=== PATIENT | male | born 1950 | race African-American/Black ===

== ENCOUNTER 2018-03-11 00:43 | Inpatient (IN) | payer OTHER ==
--- NOTE | 2018-03-11 00:51 | HP ---
COWS - Scale Resting Pulse: 1= [place] 81-100 Sweatin=Flushed/Facial Moisture Restless Observation: 3= Extraneous Movement Pupil Size: 1= Pupils >than Normal Bone or Joint Aches: 2= Severe Diffuse Aches Runny Nose/ Eye Tearin= None GI Upset > 30mins: 3= Vomiting/Diarrhea Tremor Observation: 4= Gross Tremor/Twitching Yawning Observation: 0= None Anxiety or Irritability: 2=Irritable/Anxious Goose Flesh Skin: 0=Smooth Skin COWS Score: 18 CIWA Score - Admission Criteria OAS Guidelines: Admission for Medically Managed Detox: Requires at least one of the followin. CIWA greater than 12 2. Seizures within the past 24 hours 3. Delirium tremens within the past 24 hours 4. Hallucinations within the past 24 hours 5. Acute intervention needed for co occurring medical disorder 6. Acute intervention needed for co occurring psychiatric disorder 7. Severe withdrawal that cannot be handled at a lower level of care (continued vomiting, continued diarrhea, abnormal vital signs) requiring intravenous medication and/or fluids 8. Admission ROS [facility] Chief Complaint: C/O WITHDRAWAL SX'S . SEEKING DETOX FROM HEROIN Allergies/Adverse Reactions: Allergies Allergy/AdvReac Type Severity Reaction Status Date / Time No Known Allergies Allergy Verified 03/11/18 00:45 History of Present Illness: 67 Y.O. MALE WITH HX/O OF HEROIN ADDICTION HERE FOR DETOX. THIS IS CLIENT FIRST ADMISSION HERE. HE PRESENTS TODAY WITH C/O WITHDRAWAL SX'S. COW 18. BROUGHT IN BY A FRIEND. HE REPORTS HIS LAST DETOX WAS SEVERAL MONTHS AGO BUT DOES NOT RECALL WHERE. PMHX- DM, HTN, BPH, NEUROPATHY TIA 1998. DENIES PSYCH TO INCLUDE SI/HI, HARSH. DENIES SEIZURE D.O. LIVES ALONE IN AN APT, RETIRED. DENIES LEGALLLLS. Exam Limitations: Physical Impairment (AMBULATES WITH CANE 2/2 TO BLE WEAKNESS AND PAIN) - Ebola screening Have you traveled outside of the country in the last 21 days: No Have you had contact with anyone from an Ebola affected area: No Have you been sick,other than usual withdrawal symptoms: No Do you have a fever: No - Review of Systems Constitutional: Chills, Loss of Appetite, Malaise (JOINTS), Night Sweats, Changes in sleep EENT: reports: No Symptoms Reported Respiratory: reports: No Symptoms reported Cardiac: reports: Edema (BILAT ANKLE SWELLING) GI: reports: Poor Appetite, Poor Fluid Intake, Vomiting : reports: Other (HESITANCY, DRIBBLING) Musculoskeletal: reports: Joint Pain Integumentary: reports: Sweating Neuro: reports: Tremors, Unsteady Gait (AMBUALTES W/ CANE) Endocrine: reports: Other (HX/O DM) Hematology: reports: No Symptoms Reported Psychiatric: reports: Depressed (FEELS) Other Systems: Reviewed and Negative Patient History - Patient Medical History Hx Anemia: No Hx Asthma: No Hx Chronic Obstructive Pulmonary Disease (COPD): No Hx Cancer: No Hx Cardiac Disorders: Yes (CARDIAC STENTS) Hx Congestive Heart Failure: No Hx Hypertension: Yes (AMLODIPINE) Hx Hypercholesterolemia: Yes (ATORVASTATIN) Hx Pacemaker: No HX Cerebrovascular Accident: Yes (TIA) Hx Seizures: No Hx Dementia: No Hx Diabetes: Yes Hx Gastrointestinal Disorders: No Hx Liver Disease: No Hx Genitourinary Disorders: Yes (BPH-FLOMAX) Hx Sexually Transmitted Disorders: No Hx Renal Disease (ESRD): No Hx Thyroid Disease: No Hx Human Immunodeficiency Virus (HIV): No Hx Hepatitis C: Yes (TX'ED) Hx Depression: No Hx Suicide Attempt: No Hx Bipolar Disorder: No Hx Schizophrenia: No - Patient Surgical History Past Surgical History: Yes Hx Cataract Extraction: Yes (BILAT) Hx Cardiac Surgery: Yes (STENTS 2) Hx Genitourinary Surgery: Yes (CIRCUMSCISION) Anesthesia Reaction: No - PPD History Previous Implant?: Yes Documented Results: Positive w/o proof Implanted On Prior [facility] Admission?: No PPD to be Administered?: No - Reproductive History Patient is a Female of Child Bearing Age (11 -55 yrs old): No - Smoking Cessation Smoking history: Former smoker Have you smoked in the past 12 months: No Aproximately how many cigarettes per day: 20 If you are a former smoker, when did you quit?: 2008 Cigars Per Day: 0 Hx Chewing Tobacco Use: No Initiated information on smoking cessation: No - Substance & Tx. History Hx Alcohol Use: No Hx Substance Use: Yes Substance Use Type: Heroin Hx Substance Use Treatment: Yes - Substances Abused HEROIN. Route: Inhalation Frequency: Daily Amount used: 8 BAGS Age of first use: 13 Date of Last Use: 03/05/18 Family Disease History - Family Disease History Family Disease History: Diabetes: Father (HTN, ALCOHOLIC), Heart Disease: Father , Mother (HTN) Admission Physical Exam [facility] - Physical General Appearance: Yes: Appropriately Dressed, Mild Distress, Tremorous, Sweating, Anxious HEENTM: Yes: EOMI, Normocephalic, Normal Voice, JAJA, Pharynx Normal, Other ( MISSING TEETH) Respiratory: Yes: Chest Non-Tender, Lungs Clear, Normal Breath Sounds, No Respiratory Distress, No Accessory Muscle Use Neck: Yes: No masses,lesions,Nodules, Trachea in good position, Thyroid enlarged Breast: Yes: Breast Exam Deferred Cardiology: Yes: Regular Rhythm, S1, S2, Tachycardia Abdominal: Yes: Normal Bowel Sounds, Non Tender, Soft, Protuberent Genitourinary: Yes: Hesitency (REPORTED) Back: Yes: Normal Inspection Musculoskeletal: Yes: Other (UNSTEADY GAIT AMBUALLTED WITH CAN 2/2 WEAKNESS AND) Extremities: Yes: Normal Capillary Refill, Non-Tender, Tremors Neurological: Yes: Alert, Motor Strength 5/5, Normal Mood/Affect Integumentary: Yes: Warm (BLE DRY, SCALY ATROPHIC SKIN TO BLE), Cold, Moist - Diagnostic (1) Opioid dependence with withdrawal Current Visit: Yes Status: Acute (2) HTN (hypertension) Current Visit: Yes Status: Acute (3) Diabetes mellitus Current Visit: Yes Status: Acute (4) Neuropathy Current Visit: Yes Status: Acute (5) BPH (benign prostatic hyperplasia) Current Visit: Yes Status: Acute (6) History of TIA (transient ischemic attack) Current Visit: Yes Status: Acute (7) Former smoker Current Visit: Yes Status: Acute (8) Skin turgor poor Current Visit: Yes Status: Acute (9) At risk for dehydration due to poor fluid intake Current Visit: Yes Status: Acute (10) History of positive PPD Current Visit: Yes Status: Acute (11) Ambulates with cane Current Visit: Yes Status: Acute (12) Impaired gait and mobility Current Visit: Yes Status: Acute Cleared for Admission [facility] - Detox or Rehab [facility] Level of Care: Medically Managed Detox Regimen/Protocol: Methadone [facility] Breath Alcohol Content Breath Alcohol Content: 0 Vital Signs - Vital Signs Vital Signs Refused: No Temperature: 98.3 F Temperature Source: Oral Pulse Rate: 98 Respiratory Rate: 18 Blood Pressure: 140/93 BP Location: Left Arm Blood Pressure Position: Sitting - Height Height: 5 ft 10 in - Weight Weight: 91.172 kg Weight Measurement Method: Standing Scale Body Mass Index (BMI): 28.8 - Bowel Function Bowel Movement: No Urine Drug Screen - Test Device Lot Number: [id number] Expiration Date: 11/18/19 - Results Drug Screen Negative: No Urine Drug Screen Results: OPI-Opiates, FEN-Fentanyl
[2018-03-11 01:00] VITALS: BMI 28.8
[2018-03-11] MEDS ORDERED: guaiFENesin/D-METHORPHAN HB 10 ML UNIT-DOSE CUPS PO PRN (01:00)
[2018-03-11] MEDS ORDERED: MAG HYDROX/AL HYDROX/SIMETH 30 ML UNIT-DOSE CUP PO PRN (01:00)
[2018-03-11] MEDS ORDERED: ACETAMINOPHEN 325 MG TABLET (FP) PO PRN (01:00)
[2018-03-11] MEDS ORDERED: MAGNESIUM CITRATE 300 ML BOTTLE PO PRN (01:00)
[2018-03-11] MEDS ORDERED: P-EPHED 60MG/TRIPROLIDI 2.5MG TABLET PO PRN (01:00)
[2018-03-11] MEDS ORDERED: LOPERAMIDE HCL 2 MG CAPSULE PO PRN (01:00)
[2018-03-11] MEDS ORDERED: MENTHOL/PHENOL 1 EACH UD MM PRN (01:00)
[2018-03-11] MEDS ORDERED: MAGNESIUM HYDROX 2400MG/30ML ORAL SUSPENSION 30 ML CUP PO PRN (01:00)
[2018-03-11] MEDS ORDERED: diazePAM 5 MG TABLET PO PRN (01:00)
[2018-03-11] MEDS ORDERED: hydrOXYzine PAMOATE 50 MG CAPSULE (FP) PO PRN (01:00)
[2018-03-11] MEDS ORDERED: METHADONE HCL 10 MG TABLET (FOR DETOX USE ONLY) PO ONE ×2 (01:00→23:00)
[2018-03-11] MEDS ORDERED: IBUPROFEN 400 MG TABLET (FP) PO PRN (01:00)
[2018-03-11] MEDS ORDERED: cloNIDine HCL 0.1 MG TABLET PO ONE (01:06)
[2018-03-11] MEDS ORDERED: INSULIN SLIDING SCALE (NOVOLOG) 1 VIAL SQ ONE (07:35)
[2018-03-11] MEDS: INSULIN SLIDING SCALE (NOVOLOG) 1 VIAL SQ SCH ×3 (07:38→17:30)
--- NOTE | 2018-03-11 10:23 | PN ---
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[facility] [phone] last visited 2014 filled oxycodon no hypertensant no antidiabetic medications patient reported that he lives along and goes to his primary care provider once a month last visited "few months" ago patient is able to feed self but weak ambulate with cane and wheelchair for assistance tremor sweating body aches and joints pain patient is unable to provide the name of current pharmacy as well as the name of primary care provider begin symptoms management for hypertension and diabetes Objective: 03/11/18 10:23 Vital Signs Temperature 97.8 F 03/11/18 09:24 Pulse Rate 84 03/11/18 09:24 Respiratory Rate 18 03/11/18 09:24 Blood Pressure 120/75 03/11/18 09:24 O2 Sat by Pulse Oximetry (%) Laboratory Last Values POC Glucometer 210 UNITS (80-120) 03/11/18 06:06 lab pending Assessment: 03/11/18 10:28 withdrawal sx hypertension diabetes Plan: continue detox lisinopril 10 mg bid bgm with insulin coverage
[2018-03-11] MEDS: PRENATAL VITAMINS W/ FOLIC ACID TABLET (FP) PO SCH (10:38)
[2018-03-11] MEDS: LISINOPRIL 10 MG TABLET (FP) PO SCH ×2 (10:41→22:03)
[2018-03-11 11:03] LABS: HEMATOCRIT 34.8 % (35.4-49); HEMOGLOBIN 11.7 GM/dL (11.7-16.9); MCHC 33.6 g/dl (32.0-35.9); MEAN CELL VOLUME 83.1 fl (80-96); MEAN PLT VOLUME 9.9 fl (7.5-11.1); PLATELET COUNT 182 K/MM3 (134-434); RBC 4.19 M/mm3 (4.00-5.60); WHITE BLOOD COUNT 4.6 K/mm3 (4.0-10.0)
[2018-03-11 11:07] LABS: ALBUMIN 3.1 g/dl (3.4-5.0); ALK PHOS 70 U/L (45-117); ANION GAP 8 MMOL/L (8-16); BILIRUBIN,TOTAL 0.7 mg/dL (0.2-1); BLOOD UREA NITROGEN 20 mg/dL (7-18); CALCIUM 8.5 mg/dL (8.5-10.1); CHLORIDE 106 mmol/L (98-107); CO2 30 mmol/L (21-32); GLUCOSE,RANDOM 209 mg/dL (74-106); POTASSIUM 3.9 mmol/L (3.5-5.1); SGOT/AST 51 U/L (15-37); SGPT/ALT 53 U/L (13-61); SODIUM 143 mmol/L (136-145); TOT PROT 6.2 g/dl (6.4-8.2)
--- NOTE | 2018-03-11 17:00 | EKG ---
Test Reason : Blood Pressure : / mmHG Vent. Rate : 074 BPM Atrial Rate : 074 BPM P-R Int : 130 ms QRS Dur : 090 ms QT Int : 430 ms P-R-T Axes : 067 025 030 degrees QTc Int : 477 ms NORMAL SINUS RHYTHM NORMAL ECG NO PREVIOUS ECGS AVAILABLE Confirmed by MD RIGOBERTO, ISAAC ([id number]) on 03/11/2018 4:59:48 PM Referred By: Confirmed By:ISAAC FRANKLIN MD
[2018-03-11] MEDS ORDERED: MELATONIN 5 MG TABLETS PO PRN (22:00)
[2018-03-11] MEDS: THIAMINE HCL 100 MG TABLET (FP) PO SCH (22:03)
[2018-03-11] MEDS: ASPIRIN COATED 81 MG TABLET.EC PO SCH (23:11)
[2018-03-11] MEDS: INSULIN (LEVEMIR) 100 UNITS/ML UNITS SQ SCH (23:40)
--- NOTE | 2018-03-12 | PN ---
S Progress Note (SOAP) Subjective: ASKED TO REEVALUATE CLIENT FOR REPORTS OF OVER SEDATION EARLIER TODAY. Objective: 03/11/18 23:51 Last Vital Signs Temp Pulse Resp BP Pulse Ox 97.7 F 64 18 139/75 03/11/18 22:00 03/11/18 22:45 03/11/18 22:00 03/11/18 22:00 Laboratory Results - last 24 hr 03/11/18 03/11/18 03/11/18 06:06 07:00 07:00 WBC 4.6 RBC 4.19 Hgb 11.7 Hct 34.8 L MCV 83.1 MCH 28.0 MCHC 33.6 RDW 17.0 H Plt Count 182 MPV 9.9 Sodium 143 Potassium 3.9 Chloride 106 Carbon Dioxide 30 Anion Gap 8 BUN 20 H Creatinine 1.0 Creat Clearance w eGFR > 60 POC Glucometer 210 Random Glucose 209 H Calcium 8.5 Total Bilirubin 0.7 AST 51 H ALT 53 Alkaline Phosphatase 70 Total Protein 6.2 L Albumin 3.1 L RPR Titer 03/11/18 03/11/18 03/11/18 07:00 11:41 16:17 WBC RBC Hgb Hct MCV MCH MCHC RDW Plt Count MPV Sodium Potassium Chloride Carbon Dioxide Anion Gap BUN Creatinine Creat Clearance w eGFR POC Glucometer 234 213 Random Glucose Calcium Total Bilirubin AST ALT Alkaline Phosphatase Total Protein Albumin RPR Titer Nonreactive CLIENT SEEN OOB SELF PROPELLING IN WC. AWAKE/ ALERT X 3 C/O WITHDRAWAL SX'S AND INSOMNIA. HEENT- NCAT, PERRL, EOMI, MMM 03/12/18 00:01 Assessment: 03/11/18 23:53 WITHDRAWAL SX'S INSOMNIA Plan: THIS IS A 67 YEAR OLD MAN WITH HX/O OPIOID DEPENDENCE ADMITTED A DAY AGO. HE IS AWAKE AND ALERT X 3 WITH SOME SHAKES YAWNING, RESTLESS NOTED. HE IS SPEAKING CLEARLY AND ABLE TO DIALOGUE APPROPRIATELY. CLIENT WAS ALSO ABLE TO RECALL HIS MEDICATION WHICH WERE ALSO VERIFIED VIA THE EXTERNAL MEDICATION PROFILE. HE REPORTS THAT HE WAS HOSPITALIZED 01/2018 FOR ABOUT A MONTH WHERE HIS LEFT 2ND TOE WAS AMPUTATED. HE STATES HE WAS DC THE FIRST WEEK OF AND IMMEDIATELY RELAPSED USING HEROIN DAILY FOR THE PAST 2 WEEKS. CLIENT WAS RESTARTED ON THE FOLLOWING MEDICATIONS LEVEMIR 25 UNITS BID ASA 81 MG DAILY FLOMAX 0.4 MG HS NOVOLOG INSULIN SLIDING SCALE GABAPENTIN 300 MG TID AMLODIPINE 10 MG DAILY CONT TO MONITOR CLOSELY FOR CHANGE IN MENTAL STATUS/OVER SEDATION
[2018-03-12] MEDS: GABAPENTIN 300 MG CAPSULE (FP) PO SCH ×3 (07:57→21:29)
[2018-03-12] MEDS: INSULIN (LEVEMIR) 100 UNITS/ML UNITS SQ SCH ×2 (08:03→21:29)
[2018-03-12] MEDS: INSULIN SLIDING SCALE (NOVOLOG) 1 VIAL SQ SCH ×3 (08:03→16:52)
--- NOTE | 2018-03-12 09:33 | PN ---
BHS COWS - Scale Resting Pulse: 0= [place] 80 or Below Sweatin= Chills/Flushing Restless Observation: 0= Sits Still Pupil Size: 1= Pupils >than Normal Bone or Joint Aches: 1= Mild Discomfort Runny Nose/ Eye Tearin= Nasal Congestion GI Upset > 30mins: 1= Stomach Cramp Tremor Observation of Outstretched Hands: 2= Slight Tremor Visible Yawning Observation: 2= >3x During Session Anxiety or Irritability: 1=Feels Anxious/Irritable Goose Flesh Skin: 0=Smooth Skin COWS Score: 10 BHS Progress Note (SOAP) Subjective: bp elevation patient speech clearly denies headache denies chest pain no shortness of breath begin metoprolol 100 mg that average systolic 130-170/ 80-75 body aches tremor joints pain ambulate with cane from bed to toilet and on [address] way Objective: 03/12/18 11:04 Vital Signs Temperature 97.9 F 03/12/18 09:02 Pulse Rate 78 03/12/18 09:02 Respiratory Rate 18 03/12/18 09:02 Blood Pressure 177/83 H 03/12/18 09:02 O2 Sat by Pulse Oximetry (%) Laboratory Last Values WBC 4.6 K/mm3 (4.0-10.0) 03/11/18 07:00 RBC 4.19 M/mm3 (4.00-5.60) 03/11/18 07:00 Hgb 11.7 GM/dL (11.7-16.9) 03/11/18 07:00 Hct 34.8 % (35.4-49) L 03/11/18 07:00 MCV 83.1 fl (80-96) 03/11/18 07:00 MCH 28.0 pg (25.7-33.7) 03/11/18 07:00 MCHC 33.6 g/dl (32.0-35.9) 03/11/18 07:00 RDW 17.0 % (11.9-15.9) H 03/11/18 07:00 Plt Count 182 K/MM3 (134-434) 03/11/18 07:00 MPV 9.9 fl (7.5-11.1) 03/11/18 07:00 Sodium 143 mmol/L (136-145) 03/11/18 07:00 Potassium 3.9 mmol/L (3.5-5.1) 03/11/18 07:00 Chloride 106 mmol/L (98-107) 03/11/18 07:00 Carbon Dioxide 30 mmol/L (21-32) 03/11/18 07:00 Anion Gap 8 MMOL/L (8-16) 03/11/18 07:00 BUN 20 mg/dL (7-18) H 03/11/18 07:00 Creatinine 1.0 mg/dL (0.55-1.3) 03/11/18 07:00 Creat Clearance w eGFR > 60 (>60) 03/11/18 07:00 POC Glucometer 130 UNITS (80-120) 03/12/18 07:47 Random Glucose 209 mg/dL (74-106) H 03/11/18 07:00 Calcium 8.5 mg/dL (8.5-10.1) 03/11/18 07:00 Total Bilirubin 0.7 mg/dL (0.2-1) 03/11/18 07:00 AST 51 U/L (15-37) H 03/11/18 07:00 ALT 53 U/L (13-61) 03/11/18 07:00 Alkaline Phosphatase 70 U/L (45-117) 03/11/18 07:00 Total Protein 6.2 g/dl (6.4-8.2) L 03/11/18 07:00 Albumin 3.1 g/dl (3.4-5.0) L 03/11/18 07:00 RPR Titer Nonreactive (NONREACTIVE) 03/11/18 07:00 lab noted hypertension begin metoprolol Assessment: 03/12/18 11:04 withdrawal sx Plan: continue detox continue symptom management hypertension and diabetes
[2018-03-12] MEDS ORDERED: METHADONE HCL 10 MG TABLET (FOR DETOX USE ONLY) PO ONE (10:00)
[2018-03-12] MEDS: PRENATAL VITAMINS W/ FOLIC ACID TABLET (FP) PO SCH (10:37)
[2018-03-12] MEDS: LISINOPRIL 10 MG TABLET (FP) PO SCH ×2 (10:37→21:29)
[2018-03-12] MEDS: ASPIRIN COATED 81 MG TABLET.EC PO SCH (10:37)
[2018-03-12] MEDS: TAMSULOSIN HCL 0.4 MG CAP PO SCH (10:37)
[2018-03-12] MEDS: amLODIPine BESYLATE 10 MG TABLET (FP) PO SCH (10:38)
[2018-03-12] MEDS: RANITIDINE HCL 150 MG TABLET (FP) PO SCH ×2 (10:41→21:29)
[2018-03-12] MEDS: THIAMINE HCL 100 MG TABLET (FP) PO SCH (21:29)
[2018-03-12] MEDS: ATORVASTATIN CA 40 MG TABLET (FP) PO SCH (21:29)
[2018-03-13] MEDS: GABAPENTIN 300 MG CAPSULE (FP) PO SCH ×3 (06:20→22:29)
[2018-03-13] MEDS: INSULIN SLIDING SCALE (NOVOLOG) 1 VIAL SQ SCH ×3 (07:10→16:56)
[2018-03-13] MEDS: INSULIN (LEVEMIR) 100 UNITS/ML UNITS SQ SCH ×2 (07:41→22:30)
--- NOTE | 2018-03-13 09:35 | PN ---
S Progress Note (SOAP) Subjective: body aches joints pain right knee surgically repaired 2018 ambulate with cane Objective: 03/13/18 09:34 Vital Signs Temperature 98.2 F 03/13/18 09:11 Pulse Rate 61 03/13/18 09:11 Respiratory Rate 18 03/13/18 09:11 Blood Pressure 171/78 H 03/13/18 09:11 O2 Sat by Pulse Oximetry (%) Laboratory Last Values WBC 4.6 K/mm3 (4.0-10.0) 03/11/18 07:00 RBC 4.19 M/mm3 (4.00-5.60) 03/11/18 07:00 Hgb 11.7 GM/dL (11.7-16.9) 03/11/18 07:00 Hct 34.8 % (35.4-49) L 03/11/18 07:00 MCV 83.1 fl (80-96) 03/11/18 07:00 MCH 28.0 pg (25.7-33.7) 03/11/18 07:00 MCHC 33.6 g/dl (32.0-35.9) 03/11/18 07:00 RDW 17.0 % (11.9-15.9) H 03/11/18 07:00 Plt Count 182 K/MM3 (134-434) 03/11/18 07:00 MPV 9.9 fl (7.5-11.1) 03/11/18 07:00 Sodium 143 mmol/L (136-145) 03/11/18 07:00 Potassium 3.9 mmol/L (3.5-5.1) 03/11/18 07:00 Chloride 106 mmol/L (98-107) 03/11/18 07:00 Carbon Dioxide 30 mmol/L (21-32) 03/11/18 07:00 Anion Gap 8 MMOL/L (8-16) 03/11/18 07:00 BUN 20 mg/dL (7-18) H 03/11/18 07:00 Creatinine 1.0 mg/dL (0.55-1.3) 03/11/18 07:00 Creat Clearance w eGFR > 60 (>60) 03/11/18 07:00 POC Glucometer 190 UNITS (80-120) 03/13/18 05:53 Random Glucose 209 mg/dL (74-106) H 03/11/18 07:00 Calcium 8.5 mg/dL (8.5-10.1) 03/11/18 07:00 Total Bilirubin 0.7 mg/dL (0.2-1) 03/11/18 07:00 AST 51 U/L (15-37) H 03/11/18 07:00 ALT 53 U/L (13-61) 03/11/18 07:00 Alkaline Phosphatase 70 U/L (45-117) 03/11/18 07:00 Total Protein 6.2 g/dl (6.4-8.2) L 03/11/18 07:00 Albumin 3.1 g/dl (3.4-5.0) L 03/11/18 07:00 RPR Titer Nonreactive (NONREACTIVE) 03/11/18 07:00 lab noted increase lisinorril to 20 mg bid Assessment: 03/13/18 09:35 withdrawal sx Plan: continue detox
[2018-03-13] MEDS ORDERED: METHADONE HCL 5 MG TABLET (FOR DETOX USE ONLY) PO ONE (10:00)
[2018-03-13] MEDS: ASPIRIN COATED 81 MG TABLET.EC PO SCH (10:05)
[2018-03-13] MEDS: amLODIPine BESYLATE 10 MG TABLET (FP) PO SCH (10:05)
[2018-03-13] MEDS: TAMSULOSIN HCL 0.4 MG CAP PO SCH (10:05)
[2018-03-13] MEDS: PRENATAL VITAMINS W/ FOLIC ACID TABLET (FP) PO SCH (10:05)
[2018-03-13] MEDS: RANITIDINE HCL 150 MG TABLET (FP) PO SCH ×2 (10:09→22:30)
[2018-03-13] MEDS: LISINOPRIL 20 MG TABLET (FP) PO SCH ×2 (10:10→22:30)
[2018-03-13] MEDS: THIAMINE HCL 100 MG TABLET (FP) PO SCH (22:29)
[2018-03-13] MEDS: ATORVASTATIN CA 40 MG TABLET (FP) PO SCH (22:30)
[2018-03-14] MEDS: GABAPENTIN 300 MG CAPSULE (FP) PO SCH ×3 (06:29→22:46)
[2018-03-14] MEDS: INSULIN SLIDING SCALE (NOVOLOG) 1 VIAL SQ SCH ×3 (07:56→17:37)
[2018-03-14] MEDS: INSULIN (LEVEMIR) 100 UNITS/ML UNITS SQ SCH ×2 (08:02→22:47)
[2018-03-14] MEDS ORDERED: METHADONE HCL 5 MG TABLET (FOR DETOX USE ONLY) PO ONE (10:00)
[2018-03-14] MEDS: amLODIPine BESYLATE 10 MG TABLET (FP) PO SCH (10:15)
[2018-03-14] MEDS: PRENATAL VITAMINS W/ FOLIC ACID TABLET (FP) PO SCH (10:15)
[2018-03-14] MEDS: ASPIRIN COATED 81 MG TABLET.EC PO SCH (10:15)
[2018-03-14] MEDS: LISINOPRIL 20 MG TABLET (FP) PO SCH ×2 (10:15→22:46)
[2018-03-14] MEDS: RANITIDINE HCL 150 MG TABLET (FP) PO SCH ×2 (10:15→22:46)
[2018-03-14] MEDS: TAMSULOSIN HCL 0.4 MG CAP PO SCH (10:15)
--- NOTE | 2018-03-14 14:45 | PN ---
BHS Progress Note (SOAP) Subjective: Sweating, Body Aches. Objective: PATIENT A & O X 3, OBSERVED AMBULATING ON UNIT WITH ASSISTANCE OF A CANE. IN NO ACUTE DISTRESS. PATIENT DENIES CHEST PAIN. 03/14/18 14:43 Vital Signs Temperature 98.4 F 03/14/18 13:44 Pulse Rate 70 03/14/18 13:44 Respiratory Rate 18 03/14/18 13:44 Blood Pressure 150/86 03/14/18 13:44 O2 Sat by Pulse Oximetry (%) Laboratory Tests 03/11/18 03/11/18 03/11/18 06:06 07:00 07:00 WBC 4.6 RBC 4.19 Hgb 11.7 Hct 34.8 L MCV 83.1 MCH 28.0 MCHC 33.6 RDW 17.0 H Plt Count 182 MPV 9.9 Sodium 143 Potassium 3.9 Chloride 106 Carbon Dioxide 30 Anion Gap 8 BUN 20 H Creatinine 1.0 Creat Clearance w eGFR > 60 POC Glucometer 210 Random Glucose 209 H Calcium 8.5 Total Bilirubin 0.7 AST 51 H ALT 53 Alkaline Phosphatase 70 Total Protein 6.2 L Albumin 3.1 L RPR Titer 03/11/18 03/11/18 03/11/18 07:00 11:41 16:17 WBC RBC Hgb Hct MCV MCH MCHC RDW Plt Count MPV Sodium Potassium Chloride Carbon Dioxide Anion Gap BUN Creatinine Creat Clearance w eGFR POC Glucometer 234 213 Random Glucose Calcium Total Bilirubin AST ALT Alkaline Phosphatase Total Protein Albumin RPR Titer Nonreactive 03/11/18 03/11/18 03/12/18 21:16 23:02 07:47 WBC RBC Hgb Hct MCV MCH MCHC RDW Plt Count MPV Sodium Potassium Chloride Carbon Dioxide Anion Gap BUN Creatinine Creat Clearance w eGFR POC Glucometer 290 294 130 Random Glucose Calcium Total Bilirubin AST ALT Alkaline Phosphatase Total Protein Albumin RPR Titer 03/12/18 03/12/18 03/12/18 11:00 16:20 21:12 WBC RBC Hgb Hct MCV MCH MCHC RDW Plt Count MPV Sodium Potassium Chloride Carbon Dioxide Anion Gap BUN Creatinine Creat Clearance w eGFR POC Glucometer 256 223 278 Random Glucose Calcium Total Bilirubin AST ALT Alkaline Phosphatase Total Protein Albumin RPR Titer 03/13/18 03/13/18 03/13/18 05:53 11:49 16:19 WBC RBC Hgb Hct MCV MCH MCHC RDW Plt Count MPV Sodium Potassium Chloride Carbon Dioxide Anion Gap BUN Creatinine Creat Clearance w eGFR POC Glucometer 190 232 211 Random Glucose Calcium Total Bilirubin AST ALT Alkaline Phosphatase Total Protein Albumin RPR Titer 03/13/18 03/14/18 03/14/18 21:35 06:28 11:37 WBC RBC Hgb Hct MCV MCH MCHC RDW Plt Count MPV Sodium Potassium Chloride Carbon Dioxide Anion Gap BUN Creatinine Creat Clearance w eGFR POC Glucometer 260 120 259 Random Glucose Calcium Total Bilirubin AST ALT Alkaline Phosphatase Total Protein Albumin RPR Titer LABS NOTED. 03/14/18 14:45 Assessment: 03/14/18 14:43 WITHDRAWAL SYMPTOMS. HYPERTENSION. 03/14/18 14:44 Plan: CONTINUE DETOX. CONTINUE TO MONITOR BP.
[2018-03-14] MEDS: ATORVASTATIN CA 40 MG TABLET (FP) PO SCH (22:46)
[2018-03-14] MEDS: THIAMINE HCL 100 MG TABLET (FP) PO SCH (22:47)
[2018-03-15] MEDS: GABAPENTIN 300 MG CAPSULE (FP) PO SCH ×3 (06:00→22:57)
[2018-03-15] MEDS: INSULIN (LEVEMIR) 100 UNITS/ML UNITS SQ SCH ×2 (07:59→22:57)
[2018-03-15] MEDS: INSULIN SLIDING SCALE (NOVOLOG) 1 VIAL SQ SCH ×3 (08:00→17:30)
[2018-03-15] MEDS ORDERED: METHADONE HCL 10 MG TABLET (FOR DETOX USE ONLY) PO ONE (10:00)
[2018-03-15] MEDS: amLODIPine BESYLATE 10 MG TABLET (FP) PO SCH (10:36)
[2018-03-15] MEDS: LISINOPRIL 20 MG TABLET (FP) PO SCH ×2 (10:36→22:57)
[2018-03-15] MEDS: ASPIRIN COATED 81 MG TABLET.EC PO SCH (10:36)
[2018-03-15] MEDS: RANITIDINE HCL 150 MG TABLET (FP) PO SCH ×2 (10:36→22:57)
[2018-03-15] MEDS: TAMSULOSIN HCL 0.4 MG CAP PO SCH (10:36)
[2018-03-15] MEDS: PRENATAL VITAMINS W/ FOLIC ACID TABLET (FP) PO SCH (10:37)
--- NOTE | 2018-03-15 13:49 | PN ---
S Progress Note (SOAP) Subjective: Patient Denies Any Current Withdrawal / Detox Symptoms and Reports That He Feels Well Overall At This Time. Objective: PATIENT A & O X 3, OBSERVED AMBULATING ON UNIT WITH ASSISTANCE OF A CANE. IN NO ACUTE DISTRESS. 03/15/18 13:43 Vital Signs Temperature 98.1 F 03/15/18 13:16 Pulse Rate 72 03/15/18 13:16 Respiratory Rate 16 03/15/18 13:16 Blood Pressure 126/80 03/15/18 13:16 O2 Sat by Pulse Oximetry (%) Laboratory Tests 03/11/18 03/11/18 03/11/18 06:06 07:00 07:00 WBC 4.6 RBC 4.19 Hgb 11.7 Hct 34.8 L MCV 83.1 MCH 28.0 MCHC 33.6 RDW 17.0 H Plt Count 182 MPV 9.9 Sodium 143 Potassium 3.9 Chloride 106 Carbon Dioxide 30 Anion Gap 8 BUN 20 H Creatinine 1.0 Creat Clearance w eGFR > 60 POC Glucometer 210 Random Glucose 209 H Calcium 8.5 Total Bilirubin 0.7 AST 51 H ALT 53 Alkaline Phosphatase 70 Total Protein 6.2 L Albumin 3.1 L RPR Titer 03/11/18 03/11/18 03/11/18 07:00 11:41 16:17 WBC RBC Hgb Hct MCV MCH MCHC RDW Plt Count MPV Sodium Potassium Chloride Carbon Dioxide Anion Gap BUN Creatinine Creat Clearance w eGFR POC Glucometer 234 213 Random Glucose Calcium Total Bilirubin AST ALT Alkaline Phosphatase Total Protein Albumin RPR Titer Nonreactive 03/11/18 03/11/18 03/12/18 21:16 23:02 07:47 WBC RBC Hgb Hct MCV MCH MCHC RDW Plt Count MPV Sodium Potassium Chloride Carbon Dioxide Anion Gap BUN Creatinine Creat Clearance w eGFR POC Glucometer 290 294 130 Random Glucose Calcium Total Bilirubin AST ALT Alkaline Phosphatase Total Protein Albumin RPR Titer 03/12/18 03/12/18 03/12/18 11:00 16:20 21:12 WBC RBC Hgb Hct MCV MCH MCHC RDW Plt Count MPV Sodium Potassium Chloride Carbon Dioxide Anion Gap BUN Creatinine Creat Clearance w eGFR POC Glucometer 256 223 278 Random Glucose Calcium Total Bilirubin AST ALT Alkaline Phosphatase Total Protein Albumin RPR Titer 03/13/18 03/13/18 03/13/18 05:53 11:49 16:19 WBC RBC Hgb Hct MCV MCH MCHC RDW Plt Count MPV Sodium Potassium Chloride Carbon Dioxide Anion Gap BUN Creatinine Creat Clearance w eGFR POC Glucometer 190 232 211 Random Glucose Calcium Total Bilirubin AST ALT Alkaline Phosphatase Total Protein Albumin RPR Titer 03/13/18 03/14/18 03/14/18 21:35 06:28 11:37 WBC RBC Hgb Hct MCV MCH MCHC RDW Plt Count MPV Sodium Potassium Chloride Carbon Dioxide Anion Gap BUN Creatinine Creat Clearance w eGFR POC Glucometer 260 120 259 Random Glucose Calcium Total Bilirubin AST ALT Alkaline Phosphatase Total Protein Albumin RPR Titer 03/14/18 03/14/18 03/15/18 16:27 22:45 07:01 WBC RBC Hgb Hct MCV MCH MCHC RDW Plt Count MPV Sodium Potassium Chloride Carbon Dioxide Anion Gap BUN Creatinine Creat Clearance w eGFR POC Glucometer 164 312 107 Random Glucose Calcium Total Bilirubin AST ALT Alkaline Phosphatase Total Protein Albumin RPR Titer 03/15/18 11:30 WBC RBC Hgb Hct MCV MCH MCHC RDW Plt Count MPV Sodium Potassium Chloride Carbon Dioxide Anion Gap BUN Creatinine Creat Clearance w eGFR POC Glucometer 298 Random Glucose Calcium Total Bilirubin AST ALT Alkaline Phosphatase Total Protein Albumin RPR Titer LABS NOTED. Assessment: 03/15/18 13:45 WITHDRAWAL SYMPTOMS. Plan: CONTINUE DETOX. PATIENT SCHEDULED FOR D/C TOMORROW AM. DISCHARGE PRESCRIPTIONS GIVEN TO PATIENT TO TAKE WITH HIM AFTER DISCHARGE FOR AFTERCARE. PATIENT ADVISED TO FOLLOW-UP WITH [facility] DR. ALMANZAR ([place], [place]) AFTER DISCHARGE FROM DETOX FOR GENERAL MEDICAL ASSESSMENT AND FOR HISTORY OF HTN AND OF DM. PATIENT VERBALIZED UNDERSTANDING OF RECOMMENDATION.
[2018-03-15] MEDS: THIAMINE HCL 100 MG TABLET (FP) PO SCH (22:57)
[2018-03-15] MEDS: ATORVASTATIN CA 40 MG TABLET (FP) PO SCH (22:57)
[2018-03-16] MEDS ORDERED: METHADONE HCL 5 MG TABLET (FOR DETOX USE ONLY) PO ONE (06:00)
[2018-03-16] MEDS: GABAPENTIN 300 MG CAPSULE (FP) PO SCH (07:21)
[2018-03-16] MEDS: INSULIN (LEVEMIR) 100 UNITS/ML UNITS SQ SCH (07:26)
[2018-03-16] MEDS: INSULIN SLIDING SCALE (NOVOLOG) 1 VIAL SQ SCH ×2 (07:28→11:48)
[2018-03-16 09:16] VITALS: BP 143/82; PULSE 70; TEMP 98.6
[2018-03-16] MEDS: PRENATAL VITAMINS W/ FOLIC ACID TABLET (FP) PO SCH (10:27)
[2018-03-16] MEDS: LISINOPRIL 20 MG TABLET (FP) PO SCH (10:27)
[2018-03-16] MEDS: ASPIRIN COATED 81 MG TABLET.EC PO SCH (10:27)
[2018-03-16] MEDS: amLODIPine BESYLATE 10 MG TABLET (FP) PO SCH (10:27)
[2018-03-16] MEDS: TAMSULOSIN HCL 0.4 MG CAP PO SCH (10:27)
[2018-03-16] MEDS: RANITIDINE HCL 150 MG TABLET (FP) PO SCH (10:27)
--- NOTE | 2018-03-16 10:51 | DS ---
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 from preferred pharmacy upon discharge bring an updated medication list to your medical appointments and keep a copy of your medication list in your wallet update your medication list whenever a medication change is made - Physical Exam Results Vital Signs: Vital Signs Temperature 98.6 F 03/16/18 09:16 Pulse Rate 70 03/16/18 09:16 Respiratory Rate 18 03/16/18 09:16 Blood Pressure 143/82 03/16/18 09:16 O2 Sat by Pulse Oximetry (%) Pertinent Admission Physical Exam Findings: opiate withdrawal sx Laboratory Last Values WBC 4.6 K/mm3 (4.0-10.0) 03/11/18 07:00 RBC 4.19 M/mm3 (4.00-5.60) 03/11/18 07:00 Hgb 11.7 GM/dL (11.7-16.9) 03/11/18 07:00 Hct 34.8 % (35.4-49) L 03/11/18 07:00 MCV 83.1 fl (80-96) 03/11/18 07:00 MCH 28.0 pg (25.7-33.7) 03/11/18 07:00 MCHC 33.6 g/dl (32.0-35.9) 03/11/18 07:00 RDW 17.0 % (11.9-15.9) H 03/11/18 07:00 Plt Count 182 K/MM3 (134-434) 03/11/18 07:00 MPV 9.9 fl (7.5-11.1) 03/11/18 07:00 Sodium 143 mmol/L (136-145) 03/11/18 07:00 Potassium 3.9 mmol/L (3.5-5.1) 03/11/18 07:00 Chloride 106 mmol/L (98-107) 03/11/18 07:00 Carbon Dioxide 30 mmol/L (21-32) 03/11/18 07:00 Anion Gap 8 MMOL/L (8-16) 03/11/18 07:00 BUN 20 mg/dL (7-18) H 03/11/18 07:00 Creatinine 1.0 mg/dL (0.55-1.3) 03/11/18 07:00 Creat Clearance w eGFR > 60 (>60) 03/11/18 07:00 POC Glucometer 139 UNITS (80-120) 03/16/18 07:18 Random Glucose 209 mg/dL (74-106) H 03/11/18 07:00 Calcium 8.5 mg/dL (8.5-10.1) 03/11/18 07:00 Total Bilirubin 0.7 mg/dL (0.2-1) 03/11/18 07:00 AST 51 U/L (15-37) H 03/11/18 07:00 ALT 53 U/L (13-61) 03/11/18 07:00 Alkaline Phosphatase 70 U/L (45-117) 03/11/18 07:00 Total Protein 6.2 g/dl (6.4-8.2) L 03/11/18 07:00 Albumin 3.1 g/dl (3.4-5.0) L 03/11/18 07:00 RPR Titer Nonreactive (NONREACTIVE) 03/11/18 07:00 lab noted - Treatment Hospital Course: Detox Protocol Followed, Detoxed Safely, Responded well, Discharged Condition Good, Rehab Referral Accepted Patient has Accepted [facility] - Medication Discharge Medications: Ambulatory Orders Gabapentin 1 cap PO TID 03/11/18 Insulin Glargine,Hum.rec.anlog [Lantus] 25 unit SQ BID 03/11/18 Amlodipine Besylate 1 tab PO DAILY #30 tablet 03/15/18 Lisinopril 20 mg PO DAILY #30 tablet 03/15/18 Tamsulosin HCl [Flomax] 0.4 mg PO DAILY #30 capsule 03/15/18 Atorvastatin Calcium 1 tab PO HS #14 tablet 03/16/18 Lisinopril [Prinivil] 20 mg PO BID #30 tablet 03/16/18 - Diagnosis (1) Ambulates with cane Current Visit: Yes Status: Chronic (2) BPH (benign prostatic hyperplasia) Current Visit: Yes Status: Chronic Qualifiers: Lower urinary tract symptom presence: symptoms absent Qualified Code(s): N40.0 - Benign prostatic hyperplasia without lower urinary tract symptoms (3) Diabetes mellitus Current Visit: Yes Status: Chronic Qualifiers: Diabetes mellitus type: type 2 Diabetes mellitus 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 use: unspecified 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 use status Diabetes mellitus complication status : with unspecified complications Qualified Code(s): E11.8 - Type 2 diabetes mellitus with unspecified complications (4) HTN (hypertension) Current Visit: Yes Status: Chronic Qualifiers: Hypertension type: essential hypertension Qualified Code(s): I10 - Essential (primary) hypertension (5) History of positive PPD Current Visit: Yes Status: Resolved (6) Neuropathy Current Visit: Yes Status: Chronic (7) Opioid dependence with withdrawal Current Visit: Yes Status: Acute - AMA Did Patient Leave Against Medical Advice: No
== END 2018-03-16 12:02 | disposition home or self-care (01) | DRG 897 ==
LOC: YASAS 00:43 → Y3N 00:49
PROVIDERS: ADMIT Neuromusculoskeletal Medicine & OMM; ATTEND Neuromusculoskeletal Medicine & OMM
PROC: HZ2ZZZZ Detoxification Services for Substance Abuse Treatment (ICD-10-PCS; principal; 2018-03-11)
DX: F11.23 Opioid dependence with withdrawal (principal); I25.10 Atherosclerotic heart disease of native coronary artery without angina pectoris; I10 Essential (primary) hypertension; Z95.5 Presence of coronary angioplasty implant and graft; E11.9 Type 2 diabetes mellitus without complications; Z79.4 Long term (current) use of insulin; G62.9 Polyneuropathy, unspecified; N40.0 Benign prostatic hyperplasia without lower urinary tract symptoms; R23.8 Other skin changes; R76.11 Nonspecific reaction to tuberculin skin test without active tuberculosis; R26.89 Other abnormalities of gait and mobility; Z99.89 Dependence on other enabling machines and devices; Z87.891 Personal history of nicotine dependence; Z86.69 Personal history of other diseases of the nervous system and sense organs
CPT/HCPCS: 36415; 71045-TC-FY; 80053; 82962; 85027; 86593; 93005; 93010; J0735